=== PATIENT | male | born 1990 | race African-American/Black ===

== ENCOUNTER 2016-09-14 11:33 | Emergency (ER) | payer SELFPAY ==
[2016-09-14 12:06] LABS: INFLUENZA A NEG (NEG); INFLUENZA B NEG (NEG)
== END 2016-09-14 12:30 | disposition home or self-care (01) ==
LOC: CFTX 11:33
PROVIDERS: Nurse Practitioner
DX: J01.90 Acute sinusitis, unspecified (principal)
CPT/HCPCS: 87651; 87804; 87880; 99282

== ENCOUNTER 2016-11-27 12:01 | Emergency (ER) | payer SELFPAY ==
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
== END 2016-11-27 15:26 | disposition home or self-care (01) ==
LOC: CFTX 12:01 → CED 12:01 → CFTX 12:52
DX: S39.012A Strain of muscle, fascia and tendon of lower back, initial encounter (principal); J45.909 Unspecified asthma, uncomplicated; F17.200 Nicotine dependence, unspecified, uncomplicated; V49.40XA Driver injured in collision with unspecified motor vehicles in traffic accident, initial encounter; Y92.410 Unspecified street and highway as the place of occurrence of the external cause
CPT/HCPCS: 72100; 99283